=== PATIENT | male | born 1980 | race Caucasian/White ===

== ENCOUNTER 2018-09-23 11:25 | Emergency (ER) | payer OTHER ==
[~2018-09-23] VITALS: Ht 185.4 cm; Wt 90.7 kg
[2018-09-23] MEDS ORDERED: LIDOCAINE 1% PF 2 ML VIAL. INJ ONE (12:45)
[2018-09-23] MEDS ORDERED: CLIN150C14 PO (14:18)
--- NOTE | 2018-09-23 14:19 | PHYS DOC ---
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 Pt denies any fever, headache, nausea, vomiting, neck pain, cough, or shortness of breath. He states the pain is a 10/10 if the area is touched. There are no alleviating factors. Review of Systems Review of Systems Constitutional: Denies fever or chills [] Eyes: Denies changes HENT: Denies nasal congestion or sore throat; see HPI[] Respiratory: Denies cough or shortness of breath [] Integument: See HPI Neurologic: Denies headache Current Medications Current Medications Current Medications Medications (Trade) Dose Ordered Sig/Merary Start Time Stop Time Status Last Admin Dose Admin Lidocaine HCl (Xylocaine-Mpf 1% 2ml Vial) 6 ml 1X ONCE 09/23/18 12:45 09/23/18 12:46 DC 09/23/18 12:46 6 ML Tramadol HCl (Ultram) 50 mg 1X ONCE 09/23/18 14:30 09/23/18 14:31 DC Allergies Allergies Allergies Coded Allergies Type Severity Reaction Last Updated Verified No Known Drug Allergies 09/23/18 No Physical Exam Physical Exam Constitutional: Well developed, well nourished, no acute distress, non-toxic appearance. [] HENT: Normocephalic, atraumatic, bilateral external ears normal, oropharynx moist, no oral exudates, nose normal. [] Eyes:, conjunctiva normal, no discharge. [] Neck: Normal range of motion, no tenderness, supple, no stridor. [] Lungs & Thorax: Respirations even and unlabored, no retractions, no respiratory distress Skin: Warm, dry; 4 cm diameter erythremic, warm, tender area with fluctuance no drainage noted over the preauricular area of left side of face Neurologic: Alert and oriented X 3, no focal deficits noted. [] Psychologic: Affect normal, judgement normal, mood normal. [] Current Patient Data Vital Signs Vital Signs Date Time Temp Pulse Resp B/P (MAP) Pulse Ox O2 Delivery O2 Flow Rate FiO2 09/23/18 11:35 98.1 90 16 146/57 (86) 97 Room Air 98.1 EKG EKG [] Radiology/Procedures Radiology/Procedures Indication: abscess Procedure: The patient was positioned appropriately. Local anesthesia was 1% lidocaine, 4 ml. An incision was then made over the apex of the lesion and large amount of purulent material was expressed. The drainage cavity was packed with sterile iodoform gauze. The patient tolerated the procedure well. The patient's tetanus status was up to date. Complications: none.[] Course & Med Decision Making Course & Med Decision Making Pertinent Labs and Imaging studies reviewed. (See chart for details) [] Dragon Disclaimer Dragon Disclaimer This electronic medical record was generated, in whole or in part, using a voice recognition dictation system. Departure Departure Impression: Primary Impression: Abscess of preauricular sinus Disposition: HOME, SELF-CARE Condition: STABLE Referrals: NO PCP (PCP) JENNIFER DUKE MD Patient Instructions: Abscess, Care After Additional Instructions: Fill the prescription and take as directed. Tylenol or ibuprofen as needed for pain. Wound recheck in 48 hours, follow up with ENT for recheck, Dr. Jennifer Duke's number has been provided. Return to the Er if symptoms worsen. Scripts Clindamycin Hcl (CLINDAMYCIN HCL) 150 Mg Capsule 450 MG PO TID for 7 Days, #63 CAP 0 Refills Prov: ESTHELA PIEDRA APRN 09/23/18 ESTHELA PIEDRA APRN Sep 23, 2018 14:19
[2018-09-23] MEDS ORDERED: traMADol 50 MG TABLET PO ONE (14:30)
[2018-09-23 14:57] VITALS: BP 117/66
== END 2018-09-23 14:57 | disposition home or self-care (01) ==
LOC: ER 11:25 → EEVIPCON 11:25 → ER 14:57
DX: H60.02 Abscess of left external ear (principal); E11.9 Type 2 diabetes mellitus without complications
CPT/HCPCS: 69000; 99283; 99284